=== PATIENT | male | born 1975 | race Caucasian/White ===

== ENCOUNTER → 2017-07-19 | Outpatient (CLI) | payer OTHER ==
[~2017-07-19] MED LIST: LEXAPRO 10 MG T10 M1 PO; LIPITOR 20 MG T20 M1 PO; LOSARTAN-HCTZ1 EAC2 PO; PRILOSEC OTC20 MG PO; ZYRTEC10 M5 PO
== END ==
LOC: RAD 07:33
DX: K21.9 Gastro-esophageal reflux disease without esophagitis (principal); K42.9 Umbilical hernia without obstruction or gangrene; K44.9 Diaphragmatic hernia without obstruction or gangrene; K22.2 Esophageal obstruction

== ENCOUNTER → 2017-07-26 | Outpatient (CLI) | payer OTHER ==
[~2017-07-26] VITALS: Ht 175.3 cm; Wt 93.0 kg
--- NOTE | ~2017-07-26 | O ---
[facility] [place] [address] OPERATIVE REPORT Name: KT PIERCE Room #: [facility]#: [id number] Admission: 07/26/17 Attend Phys: Manda Lyons MD, Discharge: Date of : 79 Report #: [id number] THIS REPORT FOR: //name// CC: Edwin Lyons DATE OF SERVICE: 07/26/2017 PREOPERATIVE DIAGNOSIS: Gastroesophageal reflux disease. POSTOPERATIVE DIAGNOSES: 1. Gastroesophageal reflux disease with mild esophagitis. 2. Small hiatal hernia. PROCEDURE PERFORMED: A thorough esophagogastroduodenoscopy (EGD). SURGEON: Manda Lyons MD STRATEGIC INTELLIGENCE OFFICER: None. ANESTHESIA: Monitored anesthesia care. ESTIMATED BLOOD LOSS: None. COMPLICATIONS: None appreciated. SPECIMENS: None. INDICATIONS: The patient is a 41-year-old male with a longstanding history of medically recalcitrant GERD. The patient has not had any workup thus far for his gastroesophageal reflux disease and as such indication was for an EGD today. PROCEDURE: After explaining the risks, benefits and alternatives of the procedure and obtaining consent, the patient was brought to the endoscopy suite supine on his hospital bed. After conducting a thorough timeout procedure, verifying correct patient and procedure, the patient was given monitored anesthesia care. Once adequate anesthesia was obtained, his SCDs were hooked up to pneumatic compression device and he was given monitored anesthesia care after being placed in left lateral decubitus position. The [employer] upper endoscope was used to intubate the oropharynx and was traversed easily down the esophagus and into the stomach where the pylorus was intubated and the scope was advanced to the second portion of the duodenum. Slow and careful withdrawal of the EGD scope showed no evidence of duodenitis, gastritis, mass lesions or ulcerations. A retroflexion view of the scope within the gastric lumen showed a small 1 cm hiatal hernia. The scope was straightened out and [facility] [address] [place] [address] OPERATIVE REPORT Name: KT PIERCE Room #: [facility]#: [id number] Admission: 07/26/17 Attend Phys: Manda Lyons MD, Discharge: Date of : 79 Report #: [id number] withdrawn into the distal esophagus where there was very minimal esophagitis seen. There was a patulous lower esophageal sphincter. The scope was readvanced in the gastric lumen where the stomach was fully desufflated. The scope was removed and passed off the field completing the procedure. At the end of the procedure, all instrument, needle and sponge counts were correct. The patient tolerated the procedure without incident, was awakened in the endoscopy suite and transitioned to the recovery room in stable condition with no apparent complications. <ELECTRONICALLY SIGNED> By: Manda Lyons MD, FACS 07/27/17 [id number] [id number] Manda Lyons MD, RENU /nt
== END | disposition home or self-care (01) ==
LOC: GI 06:23
DX: K21.0 Gastro-esophageal reflux disease with esophagitis (principal); K44.9 Diaphragmatic hernia without obstruction or gangrene; I10 Essential (primary) hypertension; E78.00 Pure hypercholesterolemia, unspecified; Z98.890 Other specified postprocedural states; Z79.899 Other long term (current) drug therapy; Z88.0 Allergy status to penicillin
CPT/HCPCS: 62110; 62900